=== PATIENT | male | born 1985 | race Caucasian/White ===

== ENCOUNTER 2017-02-15 08:21 | Day surgery (SDC) | payer OTHER ==
[~2017-02-15] VITALS: Ht 182.9 cm; Wt 89.8 kg
[~2017-02-15 08:21] MED LIST: Sodium Chloride LOK Flush 10 mL Syringe IV PRN; fentaNYL-PF 50 mCg/mL 2 mL Inj IVPUSH PRN; no medications
[2017-02-15] MEDS ORDERED: fentaNYL-PF 50 mCg/mL 2 mL Inj IVPUSH ONE (08:22)
[2017-02-15 09:08] VITALS: BP 127/79; PULSE 62; RESP 14; O2SAT 98
[2017-02-15] MEDS: 0.9% Sodium Chloride 1,000 ML IV SCH ×3 (09:18→10:03)
--- NOTE | 2017-02-15 10:13 | PCM.ENDCOL ---
Colonoscopy Date of Service: Feb 15, 2017 Physician Juan Parsons MD Pre Procedure Diagnosis: Abdominal pain Post Procedure Dx & Findings: Polyp hemorrhoids diverticula Procedure Colonoscopy PROCEDURE IN DETAIL: Prep adequate Withdrawal time 18 minutes After unremarkable rectal examination the Olympus video colonoscope was inserted patient's anal canal and was advanced to cecum. Landmarks were identified including the ileocecal valve and appendiceal orifice. Scope was advanced terminal ileum. Advancement 10 centimeters. Normal villous structures without ulcer or mass erosion noted. Scope was withdrawn systematically. Visualized colonic mucosa showed healthy shiny mucosa with normal healthy-appearing vasculature. In the transverse colon, there was a 1.5 cm polyp which was removed completely using hot snare. 3 hemostatic clip deployed. Patient had small diverticula in the sigmoid colon several in numbers. In the rectum retroflexion was done which showed hemorrhoids. Anal canal was inspected carefully on the way out and hemorrhoids noted. Impression Polyp 1 status post complete removal Diverticuli Hemorrhoids Recommendation Repeat colonoscopy 1 year Diverticular diet Presedation Assessment Risks and Benefits Informed consent was obtained from the patient after all risks and benefits including but not limited to drug reaction, infection, pain, bleeding, perforation, as well as alternatives were discussed. Patient monitoring Continuous pulse oximetry, cardiac monitoring, blood pressure monitoring, IV access, and oxygen at 2L per nasal cannula. Periprocedural Fentanyl: Fentanyl 100mcg Incrementally Midazolam: Midazolam 8mg Incrementally Complications There were no periprocedural complications identified. Post Procedure Plan Post Procedure Recommendations 1. Restrict activities today. 2. Resume normal activities in the morning. 3. Resume medications. 4. Patient informed of normal post procedure side effects as bloating, drowsiness, blood streaking in the stool. 5. average risk CRCS. If colon polyps come back as: -Hyperplastic- can repeat colonoscopy in 10 years -Tubular adenoma- repeat colonoscopy in 5 years -Tubulovillous/villous adenoma- repeat colonoscopy in 3 years -If any dysplasia- return to clinic as soon as possible 6. Please don't hesitate to call me with any questions. Juan Parsons MD Feb 15, 2017 10:13
[2017-02-15 10:14] VITALS: BP 102/73; PULSE 58; RESP 12; O2SAT 94
[2017-02-15 10:30] VITALS: BP_SYST 116; BP_SYST 99; BP_DIAS 67; BP_DIAS 75; PULSE 77; PULSE 87; RESP 12; RESP 14; O2SAT 96; O2SAT 97
--- NOTE | 2017-02-19 14:06 | PATH ---
SURGICAL PATHOLOGY Attending Physician:Juan Parsons M.D. CASE STATUS: Signed Out PATIENT NAME: JUANITA MELVIN PID: [id number] : 1985 DATE COLLECTED:02/15/2017 16:18 SPECIMEN: Colon, Biopsy CLINICAL HISTORY: 1. ASCENDING COLON POLYP FINAL DIAGNOSIS: 1.ASCENDING COLON POLYP: SESSILE SERRATED ADENOMA INVOLVING SINGLE BIOPSY FRAGMENT. ICD10 D12.2 GROSS DESCRIPTION: The specimen is received in one formalin filled container labeled with the patient's name, sublabeled "ascending colon polyp" and consists of 2 portions of tissue which aggregate to 0.7 x 0.7 x 0.5 CM. The specimen is entirely submitted in one cassette. 02/15/2017 DAC MICRO DESCRIPTION: See diagnosis. ICD-9 CODES: CPT CODES: 1: 05916 Electronically Signed Out Cal Salinas MD [facility] Pathology [facility] [address], [place] [address] Technical component performed at [facility], [facility] [address], [place], [address]
== END 2017-02-15 23:59 | disposition home or self-care (01) ==
LOC: END 08:21
PROVIDERS: ATTEND Internal Medicine
DX: R10.9 Unspecified abdominal pain (principal); D12.2 Benign neoplasm of ascending colon; K57.30 Diverticulosis of large intestine without perforation or abscess without bleeding; K64.9 Unspecified hemorrhoids
CPT/HCPCS: 45385; 88305; 99153; G0500; J2250; J3010; J7030